=== PATIENT | male | born 1970 | race Caucasian/White ===

== ENCOUNTER 2018-06-17 15:08 | Emergency (ER) | payer OTHER ==
[2018-06-17] MEDS: BACITRACIN 0.9 GM OINT TOP (16:15)
== END 2018-06-17 16:38 | disposition home or self-care (01) ==
LOC: FTE 15:08
DX: S49.92XA Unspecified injury of left shoulder and upper arm, initial encounter (principal); S80.812A Abrasion, left lower leg, initial encounter; S60.512A Abrasion of left hand, initial encounter; F17.210 Nicotine dependence, cigarettes, uncomplicated; V18.4XXA Pedal cycle driver injured in noncollision transport accident in traffic accident, initial encounter; Y92.9 Unspecified place or not applicable
CPT/HCPCS: 99283